=== PATIENT | female | born 1960 | race Caucasian/White ===

== ENCOUNTER 2019-05-29 17:08 | Emergency (ER) | payer MEDICAID, SELFPAY ==
[2019-05-29 17:11] VITALS: BP 141/83; PULSE 85; RESP 18; TEMP 36.6; O2SAT 94; BMI 32.8
--- NOTE | 2019-05-29 17:33 | ED.DCSUM_ITS ---
History of Present Illness Chief Complaint: Abd Pain Informant: Patient Onset: Days - 2 days Context: Gradual Onset Timing: Waxes and wanes Current Severity: Mild Maximum Severity: Moderate Narrative: Patient with lower abdominal pain for the past 2 days, worse in the left lower quadrant. Patient went to [facility] earlier today. She reported had blood work drawn and was sent over here for pelvic ultrasound followed by an abdominal ultrasound if that was unremarkable. Patient is had 2 prior C- sections. She does report having ovarian cyst after she had babies, but has been postmenopausal for the past 5 or 6 years. She has had normal bowel movements. She has had a prior colonoscopy and denies known history of diverticulitis. Past Medical History - Allergies and Home Meds Allergies/Adverse Reactions: Allergies latex Allergy (Verified 05/29/19 17:09) Anaphylaxis Primary Care Physician: Deepika Castañeda MD [Primary Care Provider] - Past Medical History: None Surgical History: - - x2 Smoking Status: Former smoker Review of Systems General: Denies: Chills, Fever Eyes: Denies: Visual changes - bilaterally ENT: Denies: Bilateral ear pain Cardiovascular: Denies: Chest pain Respiratory: Denies: Dyspnea Gastrointestinal: Reports: Abdominal pain. Denies: Nausea, Vomiting, Diarrhea Genitourinary: Denies: Dysuria, Frequency Musculoskeletal: Denies: Extremity Pain Skin: Denies: Rash Neurological: Denies: Headache Hematologic: Denies: Easy bruising, Easy bleeding Allergy: Denies: Uticaria Physical Exam Vital Signs/Narrative: Vital Signs Temp Pulse Resp BP Pulse Ox 05/29/19 17:11 97.9 F 85 18 141/83 H 94 Inital Vital Signs reviewed: Yes General: Well nourished, Well developed Head: Normocephalic ENT: Moist mucous membranes Neck: Supple Cardiovascular: Regular rate, Regular rhythm Respiratory: No distress, CTA bilaterally Abdomen: Soft, Tender - Lower abdominal tenderness palpation.. Negative for: Guarding, Rebound tenderness Extremities: Nontender Skin: Normal color Neurological: Alert, Oriented x3 Psychological: Normal affect Diagnostic/Tx/Re-eval Impressions Transvaginal US 05/29/19 17:33 IMPRESSION: Nonvisualization of the ovaries. No significant abnormality. If concern for pelvic mass CT or MRI of the pelvis recommended Electronically Signed: Tito Ortega MD at 18:45 EST , Service support , Abdomen/Pelvis CT 05/29/19 19:26 IMPRESSION: Findings consistent with nonspecific pelvic congestive type changes on the left. No evidence for small bowel obstruction or other acute abnormality Electronically Signed: Tito Ortega MD at 21:23 EST , Service support , 05/29/19 17:33 Transvaginal Non- [US] Stat 05/29/19 19:26 Abdomen/Pelvis WITH Contrast [CT] Stat Laboratory Results 05/29/19 05/29/19 05/29/19 17:45 17:45 19:30 WBC 12.1 H RBC 5.87 H Hgb 16.3 H Hct 49.7 H MCV 84.7 MCH 27.8 MCHC 32.8 RDW Std Deviation 39.7 RDW Coeff of Samir 12.7 Plt Count 220 MPV 9.9 Immature Gran % (Auto) 0.200 Neut % (Auto) 77.6 H Lymph % (Auto) 14.4 L [place] % (Auto) 6.4 Eos % (Auto) 1.0 Baso % (Auto) 0.4 Absolute Neuts (auto) 9.4 H Absolute Lymphs (auto) 1.74 Nucleated RBC % 0 Sodium 139 Potassium 4.0 Chloride 107 Carbon Dioxide 27.0 Anion Gap 5 BUN 16 Creatinine 0.92 Estim Creat Clear Calc 65.60 Est GFR (MDRD) Af Amer 80 Est GFR (MDRD) Non-Af 66 BUN/Creatinine Ratio 17.4 Glucose 93 Calcium 9.3 Urine Color Yellow Urine Clarity Cloudy Urine pH 6.0 Ur Specific [place] 1.020 Urine Protein 100 H Urine Glucose (UA) Normal Urine Ketones Negative Urine Occult Blood 250 H Urine Nitrite Positive H Urine Bilirubin Negative Urine Urobilinogen Normal Ur Leukocyte Esterase 500 H Urine RBC 25-50 SEEN Urine WBC >100 SEEN Ur Squamous Epith Cells 0 SEEN Urine Bacteria 4+ Urine Mucus 0 SEEN - Medical Decision Making Patient was given Toradol and IV fluids. On repeat evaluation she is resting comfortably. Test results are discussed with her. She has evidence of a urinary tract infection. Urine culture has been sent and she will be treated with Bactrim. ED Disposition - Plan for ED Patient: Disposition: Home or Assisted Living Diagnosis: Cystitis Instructions: Bladder Infection, Female (Adult) Prescriptions: Smz/Tmp Ds [Bactrim Ds] 1 tab PO BID #14 tab Transmission Status: Pending to [facility] Referrals: Deepika Castañeda MD [Primary Care Provider] - 1 Week if not improving
--- NOTE | 2019-05-29 17:33 | US_ITS ---
STUDY: ULTRASOUND OF THE FEMALE PELVIS - LIMITED REASON FOR EXAM: Female, 58 years old LLQ PAIN RADIATES ACROSS, POST UMER, PT HAS ESSURE TECHNIQUE: Transvaginal TECHNICAL QUALITY: Adequate. COMPARISON: None. FINDINGS: The uterus is anteverted and is in a midline position. The uterus measures 6.8 x 5.3 x 3.3 cm. Normal uterine cervix. The endometrium measures 3 mm in thickness, and is hyperechoic. There is no demonstrated endometrial mass. There is no demonstrated myometrial mass. The normal ovaries are not visualized. There is no adnexal mass. There is no fluid in the cul-de-sac. US/Transvaginal Non- IMPRESSION: Nonvisualization of the ovaries. No significant abnormality. If concern for pelvic mass CT or MRI of the pelvis recommended Electronically Signed: Tito Ortega MD at 18:45 EST , Service support ,
[2019-05-29 17:52] LABS: Absolute Lymphocyte Count 1.74 X10^3/uL (0.83-4.51); Absolute Neutrophil Count 9.4 X10^3/uL (2.0-7.7); Basophil# 0.05 X10^3/uL; Basophil% 0.4 % (0-1); Eosinophil# 0.12 X10^3/uL; Hematocrit 49.7 % (37-47); Hemoglobin 16.3 g/dL (12.0-15.0); Lymphocyte # 1.74 X10^3/ul (4.0); Lymphocyte % 14.4 % (19-41); Mean Corp Hgb Conc 32.8 g/dL (32-36); Mean Corpuscular Hgb 27.8 pg (27.0-32.0); Mean Corpuscular Volume 84.7 fL (81-99); Mean Platelet Vol. 9.9 fl (6.2-12.0); Monocyte# 0.77 X10^3/uL; Monocyte% 6.4 % (0-10); NRBC Flagged by Analyzer 0 % (0-5); Neutrophil # 9.36 X10^3/uL (2.7-7.7); Neutrophil % 77.6 % (47-70); Platelet Count 220 K/mm3 (150-450); RBC Distribution Width CV 12.7 % (11.6-14.6); RBC Distribution Width SD 39.7 fl (35.1-43.9); Red Blood Count 5.87 M/mm3 (4.2-5.4); White Blood Count 12.1 K/mm3 (4.4-11.0)
[2019-05-29] MEDS: Ketorolac 30 MG/ML Syringe IV (17:52)
[2019-05-29 18:05] LABS: Anion Gap 5 (5-15); BUN 16 mg/dL (7-18); BUN/Creat Ratio 17.4 RATIO (10-20); Calcium,Total 9.3 mg/dL (8.5-10.1); Chloride 107 mmol/L (98-107); Creatinine, Serum 0.92 mg/dL (0.55-1.02); EST Glomerular Filtration Rate 66 mL/min (>60); Est Glom Filt Rate - Afr Amer 80 mL/min (>60); Glucose 93 mg/dL (74-106); Sodium Level 139 mmol/L (136-145)
[2019-05-29] MEDS: 0.9% Normal Saline 1,000 ML 150 ML IV (18:24)
--- NOTE | 2019-05-29 19:26 | CT_ITS ---
STUDY: CT ABDOMEN AND PELVIS WITH CONTRAST REASON FOR EXAM: Female, 58 years old. PT STATED LLQ PAIN X 2 DAYS, HX OF TUMMY TUCK/REPAIR TORN MUSCLES, BLADDER SLING, C-SECTIONS RADIATION DOSAGE (If Supplied By Facility): CTDIvol = ( 15.27 ) mGy, DLP = ( 1065.87 ) mGycm TECHNIQUE: Transaxial images were obtained from the dome of the diaphragm to the symphysis pubis without oral contrast. Oral and amp; IV Gastrografin and amp; 100mL Isovue-300 was administered. Sagittal and coronal images were reconstructed. Individualized dose optimization techniques were used for this CT. COMPARISON: None. FINDINGS: There is mild subsegmental atelectasis in the right lower lobe.. The visualized portions of the heart are within normal limits. Normal liver. Normal gallbladder and extrahepatic biliary system. The spleen is upper normal size. There is a tiny hypoattenuated density to small to characterize.. Normal pancreas. Normal bilateral adrenal glands. Normal right kidney. Normal left kidney. Normal visualized stomach. Normal small intestine. Normal colon. The appendix is visualized and appears normal. Normal abdominal aorta. Normal inferior vena cava. Normal retroperitoneum. Normal urinary bladder. There is prominence of the pelvic vasculature on the left consistent with nonspecific congestive type changes. There is an essure device within the uterus and fallopian tubes Normal abdominal wall. Normal osseous structures. CT/Abdomen/Pelvis WITH Contrast IMPRESSION: Findings consistent with nonspecific pelvic congestive type changes on the left. No evidence for small bowel obstruction or other acute abnormality Electronically Signed: Tito Ortega MD at 21:23 EST , Service support ,
[2019-05-29 19:35] VITALS: BP 141/83; O2SAT 94
[2019-05-29 19:40] VITALS: BP 119/93; PULSE 73; RESP 16; O2SAT 98
[2019-05-29 19:40] LABS: Mucous, Urine 0 SEEN /hpf (<or=2+); Squamous Epithelial Cells - UA 0 SEEN /hpf (5-10)
[2019-05-29 19:46] LABS: Color, Urine Yellow (Yellow); Glucose, Dipstick Normal (Normal); Ketone-Dipstick Negative (Negative); Leukocyte Esterase-Dipstick 500 /ul (Negative); Nitrite-Dipstick Positive (Negative); Occult Blood-Urine 250 /ul (Negative); Protein-Dipstick 100 mg/dl (Negative); Urine Bilirubin Dipstick Negative (Negative); Urine Clarity Cloudy (Clear); Urine Urobilinogen Normal (Normal)
[2019-05-29 20:11] LABS: White Blood Cells >100 SEEN /hpf (0-5)
[2019-05-29 20:12] LABS: Bacteria 4+ /hpf (None Seen)
[2019-05-29 20:14] LABS: Red Blood Cells-Urine 25-50 SEEN /hpf (0-5)
[2019-05-29] MEDS: Smz/Tmp Ds Tablet 1 TABLET PO (21:57)
[2019-05-29 22:15] VITALS: BP 120/89; PULSE 72; RESP 16; O2SAT 100
== END 2019-05-29 22:16 | disposition home or self-care (01) ==
PROVIDERS: Emergency Provider Emergency Medicine; PCP Internal Medicine
DX: N30.90 Cystitis, unspecified without hematuria (principal); Z87.891 Personal history of nicotine dependence; Z91.040 Latex allergy status
CPT/HCPCS: 74177; 76830; 80048; 81001; 85025; 87086; 87088; 87186; 96361; 96374; 99284; J7030; Q9967; A4216

== ENCOUNTER 2020-08-04 16:37 | Emergency (ER) | payer MEDICAID, SELFPAY ==
[2020-08-04 16:38] VITALS: BP 154/55; PULSE 77; RESP 16; TEMP 36.2; O2SAT 96; BMI 34.0
--- NOTE | 2020-08-04 17:19 | EKG12_ITS ---
Test Reason : CP Blood Pressure : / mmHG Vent. Rate : 073 BPM Atrial Rate : 073 BPM P-R Int : 158 ms QRS Dur : 088 ms QT Int : 408 ms P-R-T Axes : 055 -09 019 degrees QTc Int : 449 ms Sinus rhythm with occasional and consecutive Premature ventricular complexes Nonspecific ST and T wave abnormality Abnormal ECG Confirmed by QUEENIE MURO, SANJAY ([id number]), managing editor ADELINA MCINTOSH ([id number]) on 08/06/2020 8:54:31 AM Referred By: CAMILLE/BREA Confirmed By:SANJAY JEROME MD
--- NOTE | 2020-08-04 17:41 | ED.VIS.CHEST ---
HPI History of Present Illness Chief Complaint: Chest Pain Informant: patient Onset/Context/Timing Onset: Month(s) (1-2) Activity at onset: gradual Timing: Continuous Quality: Positive for - (sore) Location: Right Chest Current Severity: Mild Maximum Severity: Moderate Worsened By: Movement of Torso (certain movements), Palpation and Coughing; Not Worsened By Breathing Relieved By: Rest (in certain positions) Associated Symptoms: Negative for Nausea, Vomiting, Diaphoresis, Dyspnea, Cough, Fever and Palpitations Narrative Narrative: Patient states she was sent from urgent care for evaluation of 2 months of discomfort and my right rib. She states she went there because she sat down hard today, and it made this pain fairly severe temporarily. She has had it for 2 months, it is in the distribution of rib and it feels like a rib, and it feels like a broken rib that she had long ago from a horse-related injury, she states she owns horses but cannot remember anything specific that started this particular pain which has been there constantly for the last couple months. Additionally, she states she gets a transient discomfort in her right anterolateral neck that goes up into her right jaw about once a month for the past 6 months and oftentimes is associated with dizziness. She describes the dizziness as like the floor is going to fall out from underneath of me and like I am almost going to pass out but denies feeling lightheaded at any point in time. She confirms that she feels like she is going to pass out but does not feel lightheaded at all. She also does not feel a sensation of movement/spinning/vertigo at all. She states these episodes last 3-5 minutes only, without any obvious trigger or other chest symptom, and the last time she had it happen was about a month ago. CVD Risk Factors: Positive for Family History 1' </=55; Negative for Hypertension, Diabetes, Hypercholesterolemia and Smoking [facility] Medical History (Updated 08/04/20 @ 18:[address] Mendel Resendiz MD) Depression Vitamin D deficiency Home Medications Cholecalciferol (Vitamin D3) [Vitamin D3] 50,000 unit PO MO 05/29/19 [History Last Taken Unknown] escitalopram oxalate 10 mg PO DAILY 05/29/19 [History Last Taken Unknown] vit,[id number] 1 tab PO DAILY 05/29/19 [History Last Taken Unknown] Allergy/AdvReac Type Severity Reaction Status Date / Time aspirin Allergy Other Verified 08/04/20 16:40 latex Allergy Anaphylaxis Verified 05/29/19 17:09 Social History Smoking Status: Never smoker ROS ROS ED Constitutional Constitutional ED: Denies chills or fever(s) Eyes Eyes: Denies change in vision or diplopia ENT ENT ED: Denies rhinorrhea or sore throat Cardiovascular Cardiovascular: Reports as per HPI and chest pain; Denies palpitations Respiratory/Chest Respiratory/Chest: Reports other Details: Gets a little dyspneic when the pain is severe, such as episode today. Otherwise no dyspnea. ; Denies cough Gastrointestinal Gastrointestinal: Denies abdominal pain, diarrhea, nausea or vomiting Genitourinary Genitourinary ED: Denies dysuria or hematuria Musculoskeletal Musculoskeletal: Reports as per HPI and neck pain; Denies back pain Integumentary Denies abscess or rash Neurologic Neurologic: Denies headache(s), paresthesias or weakness Psychiatric Psychiatric: Denies anxiety or suicidal thoughts EXAM Physical Exam Const Vital Signs: 08/04/20 16:38 08/04/20 17:44 08/04/20 18:05 Temperature 97.1 F L Temperature Source Temporal Pulse Rate 77 66 70 Respiratory Rate 16 14 20 H Respiratory Effort Normal Non-Labored Blood Pressure 154/55 H 175/76 H 125/108 H Blood Pressure Mean 88 109 113 Pulse Ox 96 97 97 Oxygen Delivery Method Room Air Room Air Room Air Positive well nourished and well developed General Appearance ED: well developed and NAD HEENT Reports moist mucous membranes normocephalic and atraumatic Eyes PERRL and EOMs intact bilaterally Neck full ROM and supple Chest Wall inspection of chest normal Chest: tenderness rib (right side, from R paraspinal area to mid-clavicular line inframammary, approx #7; no crepitance) Resp normal respiratory effort and clear to auscultation bilaterally Cardio regular rate, regular rhythm and no murmurs GI non-tender and non-distended Auscultation: normoactive bowel sounds Palpation: soft Back/Spine no CVA tenderness General Back: other FROM Extremity normal to inspection General Extremety ED: Negative for edema, pulses abnormal or tenderness General Extremity: Negative for edema or pulses abnormal Neuro oriented x3, CN's II-XII intact bilaterally and no sensory deficits noted Sensorium / Orientation: awake and alert Motor Exam: strength 5/5 throughout Skin no rashes or lesions noted and no wounds Heart Score History: Slightly/Non-Suspicious ECG: Normal Age: >45 - <65 years Risk Factors: No Risk Factors Troponin: </= Normal Limit Score: 1 MDM MDM MDM Narrative Medical decision making narrative: Patient does have evidence of some ventricular ectopy on her EKG, but she did not have any symptoms with it. Her cardiac work-up here is negative, but as I discussed with her I am able to give her very limited information with regards to the episodes that she last had 1 month ago. I recommend she follow-up with her doctor, she is concerned about her family history of heart disease in first-degree relatives that were around this age, and her doctor may want to get an outpatient stress test but I do not think she needs to be admitted for one urgently at this time. An event monitor may be an appropriate next step in diagnostics, we do not have those to place here in the emergency department so I recommend outpatient follow-up closely. Lab Data Attestation: I reviewed the patient's lab results. Labs: Laboratory Results - last 24 hr 08/04/20 08/04/20 08/04/20 16:55 16:55 16:55 WBC 6.7 RBC 5.34 Hgb 15.3 H Hct 46.2 MCV 86.5 MCH 28.7 MCHC 33.1 RDW Std Deviation 40.3 RDW Coeff of Samir 12.9 Plt Count 222 MPV 10.5 Immature Gran % (Auto) 0.300 Neut % (Auto) 67.0 Lymph % (Auto) 24.0 [place] % (Auto) 6.1 Eos % (Auto) 2.2 Baso % (Auto) 0.4 Absolute Neuts (auto) 4.5 Absolute Lymphs (auto) 1.61 Nucleated RBC % 0 PT 11.7 INR 0.9 Sodium 142 Potassium 3.9 Chloride 108 H Carbon Dioxide 28.0 Anion Gap 6 BUN 22 H Creatinine 0.82 Estim Creat Clear Calc 72.68 Est GFR (MDRD) Af Amer 91 Est GFR (MDRD) Non-Af 75 BUN/Creatinine Ratio 26.8 H Glucose 117 H Calcium 9.0 Troponin I < 0.015 Radiography Chest X-Ray - ED: Read by ED Physician (5-view, R rib series w/ PA chest) and No Acute Disease Diagnostic Testing: Radiology Impression Ribs w/Chest X-Ray 08/04/20 17:55 IMPRESSION: No evidence of displaced rib fracture. Electronically Signed: Godfrey Jon MD at 18:15 EDT Tel , Service support , EKG Initial EKG: Attestation: I personally reviewed and interpreted this EKG as follows: Interpretation: Sinus Rhythm and No Acute Injury Pattern Comments: Ventricular ectopy. Normal axis. Discharge Plan Triage Chief Complaint: Chest Pain ED Provider: Mendel Resendiz Dx/Rx/DC Orders Clinical Impression: Right-sided chest wall pain, Intermittent pain Prescriptions: No Action escitalopram oxalate 20 MG tablet 10 mg PO DAILY RF: 0 vit,[id number] 1 TABLET tablet 1 tab PO DAILY RF: 0 Cholecalciferol (Vitamin D3) [Vitamin D3] 5,000 UNIT capsule 50,000 unit PO MO RF: 0 Primary Care Provider: Deepika Castañeda Referrals: Deepika Castañeda MD [Primary Care Provider] - As soon as possible (Follow-up, an event monitor may be a helpful next step in diagnostics with regards to your relatively infrequent episodes of neck/jaw discomfort) Disposition Disposition: Home, self care
[2020-08-04 17:44] VITALS: BP 175/76; PULSE 66; RESP 14; O2SAT 97; O2SAT 98
[2020-08-04 17:54] LABS: Anion Gap 6 (5-15); BUN 22 mg/dL (7-18); BUN/Creat Ratio 26.8 RATIO (10-20); Chloride 108 mmol/L (98-107); Creatinine, Serum 0.82 mg/dL (0.55-1.02); EST Glomerular Filtration Rate 75 mL/min (>60); Est Glom Filt Rate - Afr Amer 91 mL/min (>60); Estimated Creatinine Clearance 72.68 ml/min; Glucose 117 mg/dL (74-106); Potassium 3.9 mmol/L (3.5-5.1); Sodium Level 142 mmol/L (136-145)
--- NOTE | 2020-08-04 17:55 | RAD_ITS ---
INDICATION: pain EXAMINATION/TECHNIQUE: X-RAY - XR Ribs Unilateral W/ PA Chest Min 3 Views COMPARISON: None. FINDINGS: SOFT TISSUES: No soft tissue swelling or gas. BONES: No displaced fracture. No sclerotic or destructive changes observed. VISUALIZED LUNGS: Clear. No pneumothorax. RAD/Ribs Uni Min 3V w/PA Chest IMPRESSION: No evidence of displaced rib fracture. Electronically Signed: Godfrey Jon MD at 18:15 EDT Tel , Service support ,
[2020-08-04 18:03] LABS: International Normalized Ratio 0.9; Prothrombin Time (Protime)PT. 11.7 SECONDS (11.7-14.9)
[2020-08-04 18:05] VITALS: BP 125/108; PULSE 70; RESP 20; O2SAT 97
[2020-08-04 18:12] LABS: Absolute Lymphocyte Count 1.61 X10^3/uL (0.83-4.51); Absolute Neutrophil Count 4.5 X10^3/uL (2.0-7.7); Basophil# 0.03 X10^3/uL; Basophil% 0.4 % (0-1); Eosinophil# 0.15 X10^3/uL; Eosinophils% 2.2 % (0-5); Hematocrit 46.2 % (37-47); Hemoglobin 15.3 g/dL (12.0-15.0); Lymphocyte # 1.61 X10^3/ul (0.83-4.51); Mean Corp Hgb Conc 33.1 g/dL (32-36); Mean Corpuscular Hgb 28.7 pg (27.0-32.0); Mean Corpuscular Volume 86.5 fL (81-99); Mean Platelet Vol. 10.5 fl (6.2-12.0); Monocyte# 0.41 X10^3/uL; Monocyte% 6.1 % (0-10); NRBC Flagged by Analyzer 0 % (0-5); Neutrophil # 4.49 X10^3/uL (2.7-7.7); Platelet Count 222 K/mm3 (150-450); RBC Distribution Width CV 12.9 % (11.6-14.6); RBC Distribution Width SD 40.3 fl (35.1-43.9); Red Blood Count 5.34 M/mm3 (4.2-5.4); White Blood Count 6.7 K/mm3 (4.4-11.0)
[2020-08-04 19:24] VITALS: BP 162/96; PULSE 67; RESP 16; O2SAT 95
== END 2020-08-04 19:26 | disposition home or self-care (01) ==
PROVIDERS: Emergency Provider Emergency Medicine; PCP Internal Medicine
DX: R07.89 Other chest pain (principal); F32.9 Major depressive disorder, single episode, unspecified; E55.9 Vitamin D deficiency, unspecified
CPT/HCPCS: 71101; 80048; 84484; 85025; 85610; 93005; 99284; A4216